=== PATIENT | female | born 1970 | race Caucasian/White ===

== ENCOUNTER 2019-05-21 09:54 | Outpatient (RCR) | payer MEDICAID ==
[~2019-05-21 09:54] MED LIST: ALBU8.5H4 IH; ALPR0.5T7 PO; ARMO250T3 PO; BUDE6HFA INH; HYDR-3729 PO; LVF500T PO; Levofloxacin PO; TRAM-21 PO; [UNRECOGNIZED DRUG - CODE] PO
== END 2019-06-04 11:17 | disposition home or self-care (01) ==
PROVIDERS: ATTEND Nurse Practitioner
DX: M77.01 Medial epicondylitis, right elbow (principal)

== ENCOUNTER 2020-01-12 10:39 | Inpatient (IN) | payer MEDICAID ==
[2020-01-12] VITALS (9 sets, daily range): BP systolic 89–133; BP diastolic 40–111
[~2020-01-12] VITALS: Ht 170.1 cm; Wt 76.2 kg
[2020-01-12] MEDS ORDERED: NS IV 1000 ML 1,000 ML ONE (11:20)
[2020-01-12] MEDS: NS IV 1000 ML 1,000 ML IV SCH ×4 (11:29→19:58)
[2020-01-12] MEDS ORDERED: ONDANSETRON 4 MG/2 ML (SDV) Z0FRAN IVP ONE (11:30)
[2020-01-12 11:33] LABS: BASOPHILS % (AUTO) 0 % (0-10); EOSINOPHILS % (AUTO) 0 % (0-10); HEMATOCRIT 37 % (35-52); HEMOGLOBIN 12.6 g/dL (11.5-16.0); LYMPHOCYTES # (AUTO) 0.2 10^3/uL (1.0-4.0); LYMPHOCYTES % (AUTO) 4 % (12-44); MEAN CORPUSCULAR HEMOGLOBIN 32 pg (25-34); MEAN CORPUSCULAR HGB CONC 34 g/dL (32-36); MEAN CORPUSCULAR VOLUME 94 fL (80-99); MEAN PLATELET VOLUME 12.1 fL (9.0-12.2); MONOCYTES # (AUTO) 0.2 10^3/uL (0.0-1.0); MONOCYTES % (AUTO) 3 % (0-12); NEUTROPHILS # (AUTO) 5.5 10^3/uL (1.8-7.8); NEUTROPHILS % (AUTO) 92 % (42-75); PLATELET COUNT 170 10^3/uL (130-400); WHITE BLOOD COUNT 5.9 10^3/uL (4.3-11.0)
[2020-01-12 11:37] LABS: ALBUMIN 3.9 GM/DL (3.2-4.5); POTASSIUM 3.7 MMOL/L (3.6-5.0)
[2020-01-12 11:38] LABS: CALCIUM 9.5 MG/DL (8.5-10.1); INR 1.2 (0.8-1.4); PROTHROMBIN TIME PATIENT 15.4 SEC (12.2-14.7)
[2020-01-12 11:40] LABS: TOTAL PROTEIN 7.5 GM/DL (6.4-8.2)
[2020-01-12 11:41] LABS: BILIRUBIN,TOTAL 0.7 MG/DL (0.1-1.0)
[2020-01-12 11:43] LABS: CREATININE SERUM 1.96 MG/DL (0.60-1.30)
--- NOTE | 2020-01-12 11:49 | ED GU-Female ---
General Chief Complaint: - Urinary Stated Complaint: UTI;VOMITING Nursing Triage Note: TO ED PER W/C REPORTS WAS SEEN IN [facility] YESTERDAY AND DX WITH UTI UNABLE TO KEEP MEDS DOWN OR MEDS FOR TEMP Nursing Sepsis Screen: Possible Severe Sepsis Risk Source: patient Exam Limitations: no limitations (LISS GARCIA) History of Present Illness Date Seen by Provider: Jan 12, 2020 Time Seen by Provider: 11:24 Initial Comments 49 year old female who presents to the ED with c/o fever, chills, nausea, vomiting and dysuria/UTI. She was seen yesterday at [facility] yesterday by Dr. Page and was started on cipro for UTI. She reports that she took her fist 2 doses and started feeling better but started to have nausea, vomiting and fevers today and unable to keep medication down. She reports that they tested her for covid and it was negative. Reports that symptoms started on 01/08/2020 Associated Symptoms: dysuria, fever/chills, lower back pain, urinary frequency (LISS GARCIA) Allergies and Home Medications Allergies Coded Allergies: doxycycline (Verified Allergy, Intermediate, Rash, 08/09/14) codeine (Unverified Allergy, Unknown, NAUSEA, 12/15/13) Home Medications Alprazolam 0.5 Mg Tablet, 0.5 MG PO BID, (Reported) Armodafinil 250 Mg Tablet, 250 MG PO DAILY, (Reported) Budesonide/Formoterol Fumarate 1 Inhaler Aero, 2 PUFF INH BID PRN for SHORTNESS OF BREATH, (Reported) Levofloxacin 500 Mg Tab, 500 MG PO DAILY @1100 Prescribed by: WARD EVANS on 08/13/14 1005 Noreth A-Et Estra/Fe Fumarate 1 Each Tablet, 1 TAB PO DAILY, (Reported) Tramadol Hcl 50 Mg Tablet, 50 MG PO Q8H Prescribed by: DENA LOZA on 08/13/14 1114 Patient Home Medication List Home Medication List Reviewed: Yes (LISS GARCIA) Review of Systems Review of Systems Constitutional: see HPI, chills, fever Gastrointestinal: see HPI, nausea, vomiting Musculoskeletal: see HPI, back pain (LISS GARCIA) All Other Systemes Reviewed Negative Unless Noted: Yes (LISS GARCIA) Past Njyfdcc-Ofizrm-Elpbjc Hx Past Med/Social Hx: Reviewed Nursing Past Med/Soc Hx (LISS GARCIA) Patient Social History Alcohol Use: Denies Use Recreational Drug Use: No Smoking Status: Never a Smoker Recent Foreign Travel: No Contact w/Someone Who Travel: No Recent Infectious Disease Expo: No (LISS GARCIA) Immunizations Up To Date Tetanus Booster (TDap): More than 5yrs Date of Pneumonia Vaccine: Jan 23, 2013 (LISS GARCIA) Seasonal Allergies Seasonal Allergies: Yes (LISS GARCIA) Past Medical History Surgeries: Yes (C/S X2, WRIST SURGERY, CYST REMOVED OFF HEAD) Section, Orthopedic Respiratory: No Asthma Cardiac: No Neurological: No Reproductive Disorders: No Female Reproductive Disorders: Denies Sexually Transmitted Disease: No HIV/AIDS: No Gastrointestinal: No Musculoskeletal: No Endocrine: No Loss of Vision: Denies Hearing Impairment: Denies Cancer: No Psychosocial: Yes Depression Integumentary: No Blood Disorders: No Adverse Reaction/Blood Tranf: No (LISS GARCIA) Family Medical History Reviewed Nursing Family Hx (LISS GARCIA) Alzheimer's disease 19 FATHER Arthritis 19 MOTHER Asthma 19 MOTHER Cardiovascular disease 19 FATHER 19 MOTHER Completed stroke 19 MOTHER Dementia 19 FATHER Diabetes mellitus 19 MOTHER Hypercholesterolemia 19 FATHER 19 MOTHER Hypertension 19 MOTHER Myocardial infarction 19 FATHER Psychosocial problem 19 FATHER Severe allergy 19 MOTHER Thyroid disease 19 MOTHER No Family History of: AIDS Abdominal aortic aneurysm Posey's disease Alcoholism Aphasia Cancer of mouth Cataracts Colon cancer Congenital disease Congenital heart disease Coronary thrombosis Cystic fibrosis Deafness or hearing loss Drug abuse Dysphasia Fibrocystic disease of breast Gastroenteritis Glaucoma Headache disorder Infertility Kidney disease Neoplasm Not obtainable due to adoption Osteoporosis Parkinson's disease Prostate cancer Respiratory disorder Seizure disorder Tuberculosis Visual disorder Physical Exam Vital Signs Vital Signs - First Documented 01/12/20 10:49 Temp 38.2 Pulse 129 Resp 18 B/P (MAP) 95/57 (70) Pulse Ox 98 O2 Delivery Room Air (AGGIE GRACE MD) Vital Signs Capillary Refill : Less Than 3 Seconds (LISS GARCIA) Height, Weight, BMI Height: 5'8.00" Weight: 122lbs. 6.0oz. 55.674907ev; 29.00 BMI Method: General Appearance: WD/WN, no apparent distress Cardiovascular: normal peripheral pulses, regular rate, rhythm, no edema, no gallop, no JVD, no murmur Respiratory: chest non-tender, lungs clear, normal breath sounds, no respiratory distress, no accessory muscle use, respiratory distress Gastrointestinal: normal bowel sounds, non tender, soft, no organomegaly, no pulsatile mass, abnormal bowel sounds Back: CVA tenderness (R), CVA tenderness (L) Extremities: normal capillary refill Neurologic/Psychiatric: alert, normal mood/affect, oriented x 3 Skin: warm/dry (LISS GARCIA) Focused Exam Lactate Level 01/12/20 11:29: Lactic Acid Level 2.37*H (AGGIE GRACE MD) Lactic Acid Level Laboratory Tests Test 01/12/20 11:29 Lactic Acid Level 2.37 MMOL/L (0.50-2.00) *H (AGGIE GRACE MD) Procedures/Interventions Lumen: triple Central Line Procedure: betadine prep, sterile drapes applied, sterile dressing applied Position: internal jugular (R) Anesthesia: Lidocaine Volume Anesthetic (ccs): 5 Complications: none Post Position: sutured, good blood return, position confirmed w/ CXR Central line placed due to patient condition and findings of persistent hypotension in the setting of urinary tract infection. Patient will require pressors as well as antibiotics and frequent blood draws. Patient consented to procedure after discussions of risk and benefits. Placed times one stick. Ultrasound guidance to the right IJ using standard technique. Good draw and f lush. Post x-ray shows line in good position without pneumothorax. (AGGIE GRACE MD) Progress/Results/Core Measures Suspected Sepsis Recent Fever Within 48 Hours: Yes Infection Criteria Present: Suspected New Infection New/Unexplained Altered Menta: No Sepsis Screen: Possible Severe Sepsis Risk SIRS Temperature: Pulse: 129 Respiratory Rate: 18 Laboratory Tests 01/12/20 11:25: White Blood Count 5.9 Blood Pressure 95 /57 Mean: 70 01/12/20 11:29: Lactic Acid Level 2.37*H 01/12/20 13:54: Laboratory Tests 01/12/20 11:25: Creatinine 1.96H, INR Comment 1.2, Platelet Count 170, Total Bilirubin 0.7 (LISS GARCIA) Results/Orders Lab Results Laboratory Tests Test 01/12/20 11:25 01/12/20 11:29 01/12/20 11:48 Range/Units White Blood Count 5.9 4.3-11.0 10^3/uL Red Blood Count 3.93 3.80-5.11 10^6/uL Hemoglobin 12.6 11.5-16.0 g/dL Hematocrit 37 35-52 % Mean Corpuscular Volume 94 80-99 fL Mean Corpuscular Hemoglobin 32 25-34 pg Mean Corpuscular Hemoglobin Concent 34 32-36 g/dL Red Cell Distribution Width 13.0 10.0-14.5 % Platelet Count 170 130-400 10^3/uL Mean Platelet Volume 12.1 9.0-12.2 fL Immature Granulocyte % (Auto) 1 % Neutrophils (%) (Auto) 92 H 42-75 % Lymphocytes (%) (Auto) 4 L 12-44 % Monocytes (%) (Auto) 3 0-12 % Eosinophils (%) (Auto) 0 0-10 % Basophils (%) (Auto) 0 0-10 % Neutrophils # (Auto) 5.5 1.8-7.8 10^3/uL Lymphocytes # (Auto) 0.2 L 1.0-4.0 10^3/uL Monocytes # (Auto) 0.2 0.0-1.0 10^3/uL Eosinophils # (Auto) 0.0 0.0-0.3 10^3/uL Basophils # (Auto) 0.0 0.0-0.1 10^3/uL Immature Granulocyte # (Auto) 0.0 0.0-0.1 10^3/uL Neutrophils % (Manual) 67 % Lymphocytes % (Manual) 4 % Monocytes % (Manual) 3 % Basophils % (Manual) 1 % Band Neutrophils 25 % Blood Morphology Comment NORMAL Prothrombin Time 15.4 H 12.2-14.7 SEC INR Comment 1.2 0.8-1.4 Activated Partial Thromboplast Time 32 24-35 SEC Sodium Level 131 L 135-145 MMOL/L Potassium Level 3.7 3.6-5.0 MMOL/L Chloride Level 97 L 98-107 MMOL/L Carbon Dioxide Level 23 21-32 MMOL/L Anion Gap 11 5-14 MMOL/L Blood Urea Nitrogen 22 H 7-18 MG/DL Creatinine 1.96 H 0.60-1.30 MG/DL Estimat Glomerular Filtration Rate 27 BUN/Creatinine Ratio 11 Glucose Level 129 H 70-105 MG/DL Calcium Level 9.5 8.5-10.1 MG/DL Corrected Calcium 9.6 8.5-10.1 MG/DL Total Bilirubin 0.7 0.1-1.0 MG/DL Aspartate Amino Transf (AST/SGOT) 19 5-34 U/L Alanine Aminotransferase (ALT/SGPT) 13 0-55 U/L Alkaline Phosphatase 87 40-136 U/L Total Protein 7.5 6.4-8.2 GM/DL Albumin 3.9 3.2-4.5 GM/DL Lactic Acid Level 2.37 *H 0.50-2.00 MMOL/L Urine Color YELLOW Urine Clarity CLOUDY Urine pH 5.5 5-9 Urine Specific [place] 1.020 1.016-1.022 Urine Protein 2+ H NEGATIVE Urine Glucose (UA) NEGATIVE NEGATIVE Urine Ketones NEGATIVE NEGATIVE Urine Nitrite NEGATIVE NEGATIVE Urine Bilirubin NEGATIVE NEGATIVE Urine Urobilinogen 0.2 < = 1.0 MG/DL Urine Leukocyte Esterase 1+ H NEGATIVE Urine RBC (Auto) 3+ H NEGATIVE Urine RBC 10-25 H /HPF Urine WBC >100 H /HPF Urine Squamous Epithelial Cells 25-50 H /HPF Urine Crystals NONE /LPF Urine Bacteria MODERATE H /HPF Urine Casts PRESENT /LPF Urine Coarse Granular Casts 25-50 H /LPF Urine Mucus NEGATIVE /LPF Urine Culture Indicated CULTURE PENDING (AGGIE GRACE MD) My Orders Orders - AGGIE GRACE MD Ns Iv 1000 Ml (Sodium Chloride 0.9%) (01/12/20 11:20) Chest 1 View, Ap/Pa Only (01/12/20 13:14) Norepinephrine 4 Mg/250 Ml (Norepinephri (01/12/20 13:15) (AGGIE GRACE MD) Medications Given in ED Current Medications Medications Dose Ordered Sig/Bob Route Start Time Stop Time Status Last Admin Dose Admin Acetaminophen 1,000 mg ONCE ONCE PO 01/12/20 12:15 01/12/20 12:16 DC 01/12/20 12:22 1,000 MG Ceftriaxone Sodium 1000 mg/ Sterile Water 10 ml @ 200 mls/hr ONCE ONCE IV 01/12/20 12:15 01/12/20 12:17 DC 01/12/20 12:23 200 MLS/HR Ondansetron HCl 8 mg ONCE ONCE IVP 01/12/20 11:30 01/12/20 11:31 DC 01/12/20 11:36 8 MG (AGGIE GRACE MD) Vital Signs/I&O 01/12/20 10:49 Temp 38.2 Pulse 129 Resp 18 B/P (MAP) 95/57 (70) Pulse Ox 98 O2 Delivery Room Air (AGGIE GRACE MD) Vital Signs/I&O Capillary Refill : Less Than 3 Seconds (LISS GARCIA) Blood Pressure Mean: 70 Departure Communication (Admissions) Time/Spoke to Admitting Phy: 12:32 Shelly 1315: The patient's blood pressure continued to decline and central line was placed by Dr. Grace at this time and Dr. Bravo was updated and the patient was started on Levophed. (LISS GARCIA) Impression Primary Impression: Urinary tract infection Additional Impression: Sepsis Disposition: 01 HOME, SELF-CARE Condition: Stable/Unchanged Admissions Decision to Admit Reason: Admit from ER (General) Decision to Admit/Date: Jan 12, 2020 Time/Decision to Admit Time: 14:10 (LISS GARCIA) Departure-Patient Inst. Referrals: MEKHI BOYKIN MD (PCP) Primary Care Physician Patient Instructions: Kidney Infection LISS GARCIA Jan 12, 2020 11:49 AGGIE GRACE MD Jan 12, 2020 13:44
[2020-01-12 11:55] LABS: BILIRUBIN,URINE NEGATIVE (NEGATIVE); CLARITY,URINE CLOUDY; COLOR,URINE YELLOW; GLUCOSE, URINE (UA) NEGATIVE (NEGATIVE); KETONES,URINE NEGATIVE (NEGATIVE); LEUKOCYTE ESTERASE ,URINE 1+ (NEGATIVE); NITRITE,URINE NEGATIVE (NEGATIVE); PH,URINE 5.5 (5-9); PROTEIN,URINE 2+ (NEGATIVE)
[2020-01-12] MEDS ORDERED: NS IV 1000 ML 1,000 ML IV SCH (12:00)
[2020-01-12 12:06] LABS: BACTERIA,URINE MODERATE /HPF; SQUAMOUS EPITHELIAL CELL,UR 25-50 /HPF; WBC,URINE >100 /HPF
--- NOTE | 2020-01-12 12:06 | NUR ---
WARD MAYS CAREGIVER DISCHARGE INSTRUCTIONS. GIVEN TO HER NO QUESTIONS
[2020-01-12 12:12] LABS: BAND NEUTROPHILS 25 %; BASOPHILS % (MANUAL) 1 %; LYMPHOCYTES % (MANUAL) 4 %; MONOCYTES % (MANUAL) 3 %; NEUTROPHILS % (MANUAL) 67 %; RBC MORPH NORMAL
[2020-01-12] MEDS ORDERED: cefTRIAXone FOR IV USE 1,000 MG in WATER (STERILE) FOR INJECTION 10 ML IV ONE (12:15)
[2020-01-12] MEDS ORDERED: ACETAMINOPHEN 500 MG TAB (TYLENOL) PO ONE (12:15)
--- NOTE | 2020-01-12 12:17 | NUR ---
PATIENT WILL KEEP BOYFRIEND UPDATED
--- NOTE | 2020-01-12 13:10 | NUR ---
CONSENT SIGNED FOR CENTRAL LINE
[2020-01-12] MEDS ORDERED: NOREPINEPHRINE 4 MG/250 ML 250 ML IV SCH (13:15)
--- NOTE | 2020-01-12 13:35 | NUR ---
CENTRAL LINE PLACED CALLED FOR PCXR FOR PLACEMENT
--- NOTE | 2020-01-12 13:41 | NUR ---
CENTRAL LINE CLEAR TO USE BY DR GRACE
[2020-01-12] MEDS: NS IV 500 ML 500 ML IV SCH ×2 (13:43→14:26)
--- NOTE | 2020-01-12 13:47 | NUR ---
CALLED TO GIVE REPORT NURSE TO CALL BACK.
--- NOTE | 2020-01-12 13:52 | Diagnostic Imaging Report ---
INDICATION: Central line placement. TIME OF EXAM: 01:48 p.m. COMPARISON: Correlation is made with prior chest from 09/07/2014. FINDINGS: Right IJ line has tip overlying the SVC. Lungs are clear. No infiltrates are detected. There is no effusion or pneumothorax. IMPRESSION: Right IJ line placement. No pneumothorax is detected. Dictated by: Dictated on workstation # [id number]
--- NOTE | 2020-01-12 13:52 | NUR ---
ICE CHIPS GIVEN 2ND LATIC ACID DRAWN.
[2020-01-12] MEDS ORDERED: ONDANSETRON 4 MG/2 ML (SDV) Z0FRAN IVP PRN (15:00)
[2020-01-12] MEDS ORDERED: FLU QUADRIvalent (3YOA+) 60 mcg/0.5 ml 2020-21 (AFLURIA) IM ONE (15:00)
[2020-01-12] MEDS ORDERED: CATHETER FLUSH 10 ML SYR IV PRN (15:00)
[2020-01-12] MEDS: VASOPRESSIN INJECTION 20 UNIT in NS (IVPB) 100 ML IV SCH ×2 (15:08→23:53)
[2020-01-12] MEDS: NOREPINEPHRINE 4 MG/250 ML 250 ML IV SCH ×2 (15:08→23:15)
--- NOTE | 2020-01-12 15:08 | History & Physical-Hospitalist ---
History of Present Illness HPI/Chief Complaint Pt is a 49yoCF who presented to the ER due to nausea and vomiting. She states that on 01/07 her symptoms started with left back pain and fevers and chills. She waited through the weekend and saw her PCP, Dr Page yesterday when she didn't feel better. He tested her for COVID which was negative reportedly. She was diagnosed with a UTI though and started on cipro. She was able to take one dose but then her nausea and vomiting worsened and she was unable keep anything down. She tried to take her antibiotic this morning but it came back up. She called Dr Page who adivsed her to seek evaluation in the ER. She was found to be quite hypotension on arrival and is admitted for septic shock. SHe reports she is feeling better now that her BP is up and he left flank pain has improved. Source: patient Exam Limitations: no limitations Date Seen 01/12/20 Time Seen by a Provider: 15:03 Attending Physician Claudia Bravo MD PCP Abimael Phan MD Referring Physician Date of Admission Jan 12, 2020 at 13:08 Home Medications & Allergies Home Medications Reviewed patient Home Medication Reconciliation performed by pharmacy medication reconciliations crystal growing technician and/or nursing. Patients Allergies have been reviewed. Allergies Allergies Coded Allergies doxycycline (Verified Allergy, Intermediate, Rash, 08/09/14) codeine (Unverified Allergy, Unknown, NAUSEA, 12/15/13) Past Dacydpa-Zziiln-Mplyev Hx Past Med/Social Hx: Reviewed Nursing Past Med/Soc Hx Patient Social History Alcohol Use: Denies Use Recreational Drug Use: No Smoking Status: Never a Smoker Recent Foreign Travel: No Contact w/other who traveled: No Recent Infectious Disease Expo: No Immunizations Up To Date Tetanus Booster (TDap): More than 5yrs Date of Pneumonia Vaccine: Jan 23, 2013 Seasonal Allergies Seasonal Allergies: Yes Past Medical History Surgeries: Section, Orthopedic Reproductive: No Sexually Transmitted Disease: No HIV/AIDS: No Female Reproductive Disorders: Denies Loss of Vision: Denies Hearing Impairment: Denies Psychosocial: Depression History of Blood Disorders: No Adverse Reaction to Blood Jean: No Family History Reviewed Nursing Family Hx Alzheimer's disease 19 FATHER Arthritis 19 MOTHER Asthma 19 MOTHER Cardiovascular disease 19 FATHER 19 MOTHER Completed stroke 19 MOTHER Dementia 19 FATHER Diabetes mellitus 19 MOTHER Hypercholesterolemia 19 FATHER 19 MOTHER Hypertension 19 MOTHER Myocardial infarction 19 FATHER Psychosocial problem 19 FATHER Severe allergy 19 MOTHER Thyroid disease 19 MOTHER No Family History of: AIDS Abdominal aortic aneurysm [place]'s disease Alcoholism Aphasia Cancer of mouth Cataracts Colon cancer Congenital disease Congenital heart disease Coronary thrombosis Cystic fibrosis Deafness or hearing loss Drug abuse Dysphasia Fibrocystic disease of breast Gastroenteritis Glaucoma Headache disorder Infertility Kidney disease Neoplasm Not obtainable due to adoption Osteoporosis Parkinson's disease Prostate cancer Respiratory disorder Seizure disorder Tuberculosis Visual disorder Review of Systems Constitutional: chills, diaphoresis, fever EENTM: no symptoms reported Respiratory: No cough, No short of breath Cardiovascular: No chest pain, No palpitations Gastrointestinal: nausea, vomiting Genitourinary: see HPI; No dysuria; frequency Musculoskeletal: back pain Skin: no symptoms reported Psychiatric/Neurological: No Symptoms Reported Physical Exam Physical Exam Vital Signs Vital Signs - First Documented 01/12/20 10:49 Temp 38.2 Pulse 129 Resp 18 B/P (MAP) 95/57 (70) Pulse Ox 98 O2 Delivery Room Air Capillary Refill : Less Than 3 Seconds Height, Weight, BMI Height: 5'8.00" Weight: 122lbs. 6.0oz. 55.475676vm; 29.00 BMI Method: General Appearance: No Apparent Distress, WD/WN HEENT: PERRL/EOMI, Moist Mucous Membranes Neck: Normal Inspection, Supple, Other (central line in place) Respiratory: Lungs Clear, No Accessory Muscle Use, No Respiratory Distress Cardiovascular: Regular Rate, Rhythm, No Murmur Gastrointestinal: Normal Bowel Sounds, Non Tender, Soft Back: CVA Tenderness (L) Extremity: Normal Capillary Refill, No Calf Tenderness Neurologic/Psychiatric: Alert, Oriented x3, Normal Mood/Affect Skin: Normal Color, Warm/Dry Results Results/Procedures Labs Laboratory Tests 01/12/20 11:25 Patient resulted labs reviewed. Imaging: Reviewed Imaging Report Imaging [facility], [place] NAME: [facility] REC#: [id number] PT STATUS: ADM IN : 1970 PHYSICIAN: AGGIE GRACE MD ADMIT DATE: 01/12/20/ICU Draft Date of Exam:01/12/20 CHEST 1 VIEW, AP/PA ONLY INDICATION: Central line placement. TIME OF EXAM: 01:48 p.m. COMPARISON: Correlation is made with prior chest from 09/07/2014. FINDINGS: Right IJ line has tip overlying the SVC. Lungs are clear. No infiltrates are detected. There is no effusion or pneumothorax. IMPRESSION: Right IJ line placement. No pneumothorax is detected. Dictated on workstation # [id number] Dict: 01/12/20 1347 Trans: 01/12/20 1352 [id number] Interpreted by: RAFFAELE KERR MD Electronically signed by: Assessment/Plan Admission Diagnosis Septic Shock Admission Status: Inpatient Order (span 2 midnights) Reason for Inpatient Admission: see below Assessment and Plan Septic Shock UTI Continue on IV abx Titrate pressors off as able Request cultures from Kenny Repeat cultures here s/p 30cc/kg bolus in the Er I attest to a focused exam COVID negative yesterday per report SD Continue IVF trend Hyponatremia Likely due to hypovolemia Continue IVF DVT ppx: Lovenox Diagnosis/Problems Diagnosis/Problems (1) SD (acute kidney injury) Status: Acute (2) Hyponatremia Status: Acute (3) Sepsis Status: Acute Qualifiers: Sepsis type: sepsis due to unspecified organism Sepsis acute organ dysfunction status: with acute organ dysfunction Severe sepsis acute organ dysfunction type: acute renal failure Acute renal failure type: unspecified Severe sepsis shock status: with septic shock Qualified Codes: A41.9 - Sepsis, unspecified organism; R65.21 - Severe sepsis with septic shock; N17.9 - Acute kidney failure, unspecified (4) Urinary tract infection Status: Acute Qualifiers: Urinary tract infection type: acute pyelonephritis Qualified Codes: N10 - Acute pyelonephritis Clinical Quality Measures DVT/VTE Risk/Contraindication: Risk Factor Score Per Nursin RFS Level Per Nursing on Admit: 4+=Very High Copy Copies To 1: CLAU PAGE KATELYN M MD Jan 12, 2020 15:08
[2020-01-12] MEDS ORDERED: EPINEPHrine 1 MG INJECTION 4 MG in NS (IVPB) 248 ML IV SCH (15:15)
[2020-01-12] MEDS ORDERED: ONDANSETRON 4 MG/2 ML (SDV) Z0FRAN IV PRN (15:15)
[2020-01-12] MEDS ORDERED: VIT1TABL82 PO (15:48)
[2020-01-12] MEDS ORDERED: NAPR-915 PO (15:48)
[2020-01-12] MEDS ORDERED: SULF1TAB35 PO (15:48)
[2020-01-12] MEDS ORDERED: VENL75CA93 PO (15:48)
[2020-01-12] MEDS ORDERED: FLUT9.9S NSEACH (15:48)
[2020-01-12] MEDS ORDERED: CHOL200012 PO (15:48)
[2020-01-12] MEDS ORDERED: BREX2TAB PO (15:48)
[2020-01-12] MEDS ORDERED: NORE1TAB95 PO (15:48)
--- NOTE | 2020-01-12 15:50 | NUR ---
SPOKE WITH THE PT AND WENT THRU THE EXT MED HISTORY TO COMPLETE THE MED REC VENLAFAXINE- PT TAKES A 150MG CAP AND 75MG CAP TO EQUAL 225MG DAILY REXULTI- 1 MG AND 2 MG ARE BOTH LISTED ON THE EXT MED HISTORY, ACCORDING TO THE PT SHE IS CURRENTLY TAKING THE 2MG . SHE HAD FILLED THE 2MG AND THOUGHT SHE WAS HAVING ISSUES DUE TO THE MEDICATION THEREFORE SHE WAS PRESCRIBED THE 1MG. AFTER THE PT RECOVERED FROM SURGERY SHE REALIZED THE ISSUES SHE WAS HAVING WERENT RELATED TO REXULTI AND THE DR HAD HER SWITCH BACK TO THE 2MG OTC MEDS: VIT B3 50MCG VIT B COMPLEX FLONASE
[2020-01-12] MEDS: ENOXAPARIN 40 MG/0.4 ML (LOVENOX) SYR SQ SCH (16:50)
--- NOTE | 2020-01-12 18:24 | NUR ---
THIS NURSE NOTIFIED DR BECKER PT HEART MONITOR IS SHOWING 2-3 SEC PAUSES. PT IS ASYMPTOMATIC. ORDER GIVEN FOR EKG.
--- NOTE | 2020-01-12 18:45 | NUR ---
THIS NURSE NOTIFIED DR BECKER OF EKG RESULTS. NO NEW ORDERS AT THIS TIME. WILL CONTINUE TO MONITOR.
[2020-01-12] MEDS: ACETAMINOPHEN 500 MG TAB (TYLENOL) PO PRN (22:17)
[2020-01-13] VITALS (18 sets, daily range): BP systolic 94–138; BP diastolic 60–84
[2020-01-13] MEDS ORDERED: ALPRAZolam 0.25 MG (XANAX) TAB PO ONE (00:15)
[2020-01-13] MEDS: NS IV 1000 ML 1,000 ML IV SCH (00:36)
[2020-01-13 02:42] LABS: BASOPHILS % (AUTO) 1 % (0-10); EOSINOPHILS # (AUTO) 0.1 10^3/uL (0.0-0.3); EOSINOPHILS % (AUTO) 1 % (0-10); HEMATOCRIT 29 % (35-52); HEMOGLOBIN 9.9 g/dL (11.5-16.0); LYMPHOCYTES % (AUTO) 11 % (12-44); MEAN CORPUSCULAR HEMOGLOBIN 32 pg (25-34); MEAN CORPUSCULAR HGB CONC 35 g/dL (32-36); MEAN CORPUSCULAR VOLUME 94 fL (80-99); MEAN PLATELET VOLUME 12.4 fL (9.0-12.2); MONOCYTES # (AUTO) 0.9 10^3/uL (0.0-1.0); MONOCYTES % (AUTO) 11 % (0-12); NEUTROPHILS # (AUTO) 6.7 10^3/uL (1.8-7.8); NEUTROPHILS % (AUTO) 77 % (42-75); PLATELET COUNT 132 10^3/uL (130-400); WHITE BLOOD COUNT 8.7 10^3/uL (4.3-11.0)
[2020-01-13 02:48] LABS: POTASSIUM 3.3 MMOL/L (3.6-5.0)
[2020-01-13 02:50] LABS: CALCIUM 7.6 MG/DL (8.5-10.1)
[2020-01-13 02:54] LABS: CREATININE SERUM 1.41 MG/DL (0.60-1.30); PHOSPHORUS 2.2 MG/DL (2.3-4.7)
[2020-01-13] MEDS: KCL 20 MEQ TAB (K-DUR) PO SCH (03:36)
[2020-01-13] MEDS: POTASSIUM CL 10MEQ/50ML IVPB 50 ML IV SCH (03:36)
[2020-01-13] MEDS: MAGNESIUM 1 GM/100 ML IVPB 100 ML IV SCH (03:36)
--- NOTE | 2020-01-13 04:39 | Pulmonary Consultation ---
SHANNON HENRY MED STUDENT 01/13/20 0439: History of Present Illness History of Present Illness Date Seen by Provider: Jan 13, 2020 Time Seen by Provider: 04:20 Date of Admission History of Present Illness Radha Kowalski is a 49 year old female seen today due to a UTI, she presented to the ED 01/11 due to nausea and vomiting, and was found to be in septic shock. She reports having left sided abdominal and flank pain, fevers and chills, dysuria, and nausea/vomiting starting on Saturday, and reports that she has not ate or been able to keep medication down in the past four days. She required levophed on admission, nursing reports it has been held since midnight. This morning she reports that her nausea/vomiting have improved significantly, and she was able to eat and take medication PO yesterday. Her abdominal pain has improved as well, she reports it is a 7/10. Her dysuria is improving and urinary frequency have improved. She reports having CP and SOB yesterday that she describes has pressure moving the left of her chest to the right, reports it occurred suddenly while she was lying down and improved with Tylenol. Nursing note reports 2-3 second pauses on monitor, EKG was taken. She has had no recurrence of chest pain. Also reports RUQ tenderness to palpation and movement that began yesterday. Allergies and Home Medications Allergies Coded Allergies: doxycycline (Verified Allergy, Intermediate, Rash, 08/09/14) codeine (Unverified Allergy, Unknown, NAUSEA, 12/15/13) Home Medications Brexpiprazole 2 Mg Tablet, 2 MG PO DAILY, (Reported) Cholecalciferol (Vitamin D3) 50 Mcg Capsule, 50 MCG PO DAILY, (Reported) Fluticasone Propionate 9.9 Ml [place].susp, 1-2 SPRAY NSEACH DAILY PRN for CONGESTION, (Reported) 1 SPRAY EACH NARE DAILY Naproxen 500 Mg Tablet, 500 MG PO BID PRN for PAIN-MILD (1-4), (Reported) Norethindrone-E.estradiol-Iron 1 Each Tablet, 1 EA PO DAILY, (Reported) Sulfamethoxazole/Trimethoprim 1 Each Tablet, 1 EA PO BID, (Reported) FILLED 01-11-2020 #20/10 DAY SUPPLY Venlafaxine HCl 75 Mg Cap.er.24h, 225 MG PO DAILY, (Reported) TAKES 75MG +150MG TO EQUAL 225MG DAILY Vit B Comp/C/FA/Iron/Vit E 1 Each Tablet, 1 EACH PO DAILY, (Reported) Past Yovkvxq-Vjmoyr-Bxeifp Hx Past Med/Social Hx: Reviewed Nursing Past Med/Soc Hx Patient Social History Alcohol Use: Denies Use Recreational Drug Use: No Smoking Status: Never a Smoker Recent Foreign Travel: No Contact w/Someone Who Travel: No Recent Infectious Disease Expo: No Immunizations Up To Date Tetanus Booster (TDap): More than 5yrs Date of Pneumonia Vaccine: Jan 23, 2013 Seasonal Allergies Seasonal Allergies: Yes Past Medical History Surgeries: Yes (C/S X2, WRIST SURGERY, CYST REMOVED OFF HEAD) Section, Orthopedic Respiratory: No Asthma Cardiac: No Neurological: No Reproductive Disorders: No Female Reproductive Disorders: Denies Sexually Transmitted Disease: No HIV/AIDS: No Gastrointestinal: No Musculoskeletal: No Endocrine: No Loss of Vision: Denies Hearing Impairment: Denies Cancer: No Psychosocial: Yes Depression Integumentary: No Blood Disorders: No Adverse Reaction/Blood Tranf: No Family Medical History Reviewed Nursing Family Hx Alzheimer's disease 19 FATHER Arthritis 19 MOTHER Asthma 19 MOTHER Cardiovascular disease 19 FATHER 19 MOTHER Completed stroke 19 MOTHER Dementia 19 FATHER Diabetes mellitus 19 MOTHER Hypercholesterolemia 19 FATHER 19 MOTHER Hypertension 19 MOTHER Myocardial infarction 19 FATHER Psychosocial problem 19 FATHER Severe allergy 19 MOTHER Thyroid disease 19 MOTHER No Family History of: AIDS Abdominal aortic aneurysm [place]'s disease Alcoholism Aphasia Cancer of mouth Cataracts Colon cancer Congenital disease Congenital heart disease Coronary thrombosis Cystic fibrosis Deafness or hearing loss Drug abuse Dysphasia Fibrocystic disease of breast Gastroenteritis Glaucoma Headache disorder Infertility Kidney disease Neoplasm Not obtainable due to adoption Osteoporosis Parkinson's disease Prostate cancer Respiratory disorder Seizure disorder Tuberculosis Visual disorder Review of Systems Constitutional: Weakness; No: Fever (resolved), Chills (resolved) Eyes: No: Pain, Vision change ENT: Throat pain (associated with vomiting); No: Nose congestion Respiratory: Shortness of breath (during CP yesterday); No: Cough Cardiovascular: Chest Pain; No: Palpitations Gastrointestinal: Nausea (improving), Abdominal Pain (improving); No: Vomiting, Diarrhea, Constipation Genitourinary: Dysuria (improving), Frequency (improving) Neurological: No: Weakness, Numbness Sepsis Event Evaluation Height, Weight, BMI Height: 5'8.00" Weight: 122lbs. 6.0oz. 55.828661dd; 29.00 BMI Method: Exam Exam Vital Signs Date Time Temp Pulse Resp B/P (MAP) Pulse Ox O2 Delivery O2 Flow Rate FiO2 01/13/20 03:00 77 94/60 (71) 99 Room Air 01/13/20 02:00 64 109/64 (79) 95 Room Air 01/13/20 01:00 64 01/13/20 01:00 64 106/70 (82) 95 Room Air 01/13/20 00:19 36.4 01/13/20 00:15 65 113/66 (82) 95 Room Air 01/13/20 00:00 67 14 95 Room Air 01/13/20 00:00 96 Room Air 01/12/20 23:00 69 60 120/83 (95) 95 Room Air 01/12/20 22:00 81 114/83 (93) 93 Room Air 01/12/20 21:00 82 104/96 (99) 96 Room Air 01/12/20 20:00 37.0 01/12/20 20:00 96 Room Air 01/12/20 20:00 93 13 133/96 (108) 97 Room Air 01/12/20 19:00 81 21 120/73 (89) 95 Room Air 01/12/20 19:00 81 01/12/20 18:03 93 01/12/20 18:00 89 10 89/40 (56) 97 Room Air 01/12/20 17:00 101 23 102/63 (76) 96 Room Air 01/12/20 16:00 36.6 01/12/20 16:00 Room Air 01/12/20 16:00 100 43 90 Room Air 01/12/20 15:00 85 131/111 (118) 96 Room Air 01/12/20 15:00 85 131/111 (118) 96 Room Air 01/12/20 14:50 Room Air 01/12/20 14:30 98 33 124/89 (101) 95 Room Air 01/12/20 14:00 87 18 117/71 97 Room Air 01/12/20 13:43 107 88/58 01/12/20 10:49 38.2 129 18 95/57 (70) 98 Room Air I & O 01/13/20 07:00 Intake Total 3585 ml Output Total 2900 ml Balance 685 ml Height & Weight Height: 5'8.00" Weight: 122lbs. 6.0oz. 55.229274ul; 29.00 BMI Method: General Appearance: No Apparent Distress, WD/WN HEENT: PERRL/EOMI, Moist Mucous Membranes; No Scleral Icterus (L), No Scleral Icterus (R) Neck: Normal Inspection, Supple, Tender Lateral (L SCM mildly tender to palpation), Other (central line in place) Respiratory: Lungs Clear, Normal Breath Sounds, No Accessory Muscle Use, No Respiratory Distress Cardiovascular: No Edema, No Murmur, Normal Peripheral Pulses, Tachycardia (90s-100s) Capillary Refill: Less Than 3 Seconds Peripheral Pulses: 2+ Dorsalis Pedis (R), 2+ Left Dors-Pedis (L), 2+ Radial Pulses (R), 2+ Radial Pulses (L) Gastrointestinal: soft, no organomegaly, abnormal bowel sounds (hypoactive), tenderness (LLQ, L flank, L CVA improving. Milder RUQ pain new yesterday) Extremity: Normal Capillary Refill, Non Tender, No Calf Tenderness, No Pedal Edema Neurologic/Psychiatric: Alert, Oriented x3, Normal Mood/Affect Skin: Normal Color, Warm/Dry Results Lab Laboratory Tests 01/12/20 11:25 01/13/20 02:30 Assessment/Plan Assessment/Plan Septic shock - continue IVF - off levophed since midnight, BP 120/83 at last check - tachycardic during exam, otherwise HR in 60s-70s this morning - afebrile, no leukocytosis - lactic acid 1.38, down from 2.37 UTI - urine culture pending - continue ceftriaxone - n/v controlled with zofran SD - BUN 20, Cr 1.41, slightly improved today - continue IVF Hypokalemia - replace - magnesium replacement ordered Hypophosphatemia - PO4 2.2, monitor Anemia - Hgb 9.9, monitor Hyponatremia - resolved CORAZON MOELLER DO 01/13/20 0537: History of Present Illness History of Present Illness Time Seen by Provider: 05:32 Allergies and Home Medications Allergies Coded Allergies: doxycycline (Verified Allergy, Intermediate, Rash, 08/09/14) codeine (Unverified Allergy, Unknown, NAUSEA, 12/15/13) Home Medications Brexpiprazole 2 Mg Tablet, 2 MG PO DAILY, (Reported) Cholecalciferol (Vitamin D3) 50 Mcg Capsule, 50 MCG PO DAILY, (Reported) Fluticasone Propionate 9.9 Ml [place].susp, 1-2 SPRAY NSEACH DAILY PRN for CONGESTION, (Reported) 1 SPRAY EACH NARE DAILY Naproxen 500 Mg Tablet, 500 MG PO BID PRN for PAIN-MILD (1-4), (Reported) Norethindrone-E.estradiol-Iron 1 Each Tablet, 1 EA PO DAILY, (Reported) Sulfamethoxazole/Trimethoprim 1 Each Tablet, 1 EA PO BID, (Reported) FILLED 01-11-2020 #20/10 DAY SUPPLY Venlafaxine HCl 75 Mg Cap.er.24h, 225 MG PO DAILY, (Reported) TAKES 75MG +150MG TO EQUAL 225MG DAILY Vit B Comp/C/FA/Iron/Vit E 1 Each Tablet, 1 EACH PO DAILY, (Reported) Past Avcemjj-Ewmynh-Kfxulk Hx Family Medical History Alzheimer's disease 19 FATHER Arthritis 19 MOTHER Asthma 19 MOTHER Cardiovascular disease 19 FATHER 19 MOTHER Completed stroke 19 MOTHER Dementia 19 FATHER Diabetes mellitus 19 MOTHER Hypercholesterolemia 19 FATHER 19 MOTHER Hypertension 19 MOTHER Myocardial infarction 19 FATHER Psychosocial problem 19 FATHER Severe allergy 19 MOTHER Thyroid disease 19 MOTHER No Family History of: AIDS Abdominal aortic aneurysm [place]'s disease Alcoholism Aphasia Cancer of mouth Cataracts Colon cancer Congenital disease Congenital heart disease Coronary thrombosis Cystic fibrosis Deafness or hearing loss Drug abuse Dysphasia Fibrocystic disease of breast Gastroenteritis Glaucoma Headache disorder Infertility Kidney disease Neoplasm Not obtainable due to adoption Osteoporosis Parkinson's disease Prostate cancer Respiratory disorder Seizure disorder Tuberculosis Visual disorder Review of Systems Time Seen by Provider: 05:33 Exam Exam General Appearance: No Apparent Distress, WD/WN HEENT: PERRL/EOMI, Moist Mucous Membranes Neck: Normal Inspection, Supple Respiratory: Lungs Clear, Normal Breath Sounds, No Accessory Muscle Use, No Respiratory Distress Cardiovascular: No Edema, No Murmur, Normal Peripheral Pulses Gastrointestinal: soft, no organomegaly Extremity: Normal Capillary Refill, Non Tender, No Calf Tenderness Neurologic/Psychiatric: Alert, Oriented x3, Normal Mood/Affect Skin: Normal Color, Warm/Dry Assessment/Plan Assessment/Plan Septic shock - continue IVF - off levophed since midnight, BP 120/83 at last check - tachycardic during exam, otherwise HR in 60s-70s this morning - afebrile, no leukocytosis - lactic acid 1.38, down from 2.37 UTI - urine culture pending - continue ceftriaxone - n/v controlled with zofran SD - BUN 20, Cr 1.41, slightly improved today - continue IVF Hypokalemia - replace - magnesium replacement ordered Hypophosphatemia - PO4 2.2, monitor Anemia - Hgb 9.9, monitor Hyponatremia - resolved SHANNON HENRY MED STUDENT Jan 13, 2020 04:39 CORAZON MOELLER DO Jan 13, 2020 05:37
[2020-01-13] MEDS: LACTATED RINGERS 1,000 ML IV SCH ×2 (05:54→14:45)
[2020-01-13] MEDS: ACETAMINOPHEN 500 MG TAB (TYLENOL) PO PRN ×2 (05:55→19:52)
[2020-01-13] MEDS ORDERED: IBUPROFEN TABLET 200 MG TAB PO ONE (06:35)
[2020-01-13] MEDS: IBUPROFEN TABLET 200 MG TAB PO PRN ×2 (06:42→14:28)
[2020-01-13] MEDS: NOREPINEPHRINE 4 MG/250 ML 250 ML IV SCH ×2 (06:51→12:35)
[2020-01-13] MEDS ORDERED: SODIUM PHOSPHATE INJ 30 MM in NS (IVPB) 250 ML IV ONE (07:00)
[2020-01-13] MEDS: VASOPRESSIN INJECTION 20 UNIT in NS (IVPB) 100 ML IV SCH (07:28)
--- NOTE | 2020-01-13 07:46 | Diagnostic Imaging Report ---
INDICATION: Dyspnea Upright chest shows normal heart size and vascularity. There is right basilar discoid atelectasis. There is no effusion or pneumothorax. IMPRESSION: Basilar discoid atelectasis with slightly more opacification of the right lung base otherwise there is no change from 01/12/2020. Dictated by: Dictated on workstation # [id number]
--- NOTE | 2020-01-13 08:53 | Progress Note - Hospitalist ---
Subjective HPI/CC On Admission Date Seen by Provider: Jan 13, 2020 Time Seen by Provider: 08:48 Pt is a 49yoCF who presented to the ER due to nausea and vomiting. She states that on 01/07 her symptoms started with left back pain and fevers and chills. She waited through the weekend and saw her PCP, Dr Page yesterday when she didn't feel better. He tested her for COVID which was negative reportedly. She was diagnosed with a UTI though and started on cipro. She was able to take one dose but then her nausea and vomiting worsened and she was unable keep anything down. She tried to take her antibiotic this morning but it came back up. She called Dr Page who adivsed her to seek evaluation in the ER. She was found to be quite hypotension on arrival and is admitted for septic shock. SHe reports she is feeling better now that her BP is up and he left flank pain has improved. Subjective/Events-last exam Pt reports feeling better today. Able to keep food down. Discussed positive blood cultures. Focused Exam Lactate Level 01/12/20 11:29: Lactic Acid Level 2.37*H 01/12/20 13:54: Lactic Acid Level 1.22 01/12/20 15:04: Lactic Acid Level 1.38 Objective Exam Vital Signs Vital Signs Date Time Temp Pulse Resp B/P (MAP) Pulse Ox O2 Delivery O2 Flow Rate FiO2 01/13/20 06:31 92 101/69 (80) 95 Room Air 01/13/20 04:00 36.2 01/13/20 00:00 14 Capillary Refill : Less Than 3 Seconds General Appearance: No Apparent Distress, WD/WN Respiratory: Lungs Clear, No Respiratory Distress Cardiovascular: Regular Rate, Rhythm, No Murmur Gastrointestinal: Normal Bowel Sounds, Non Tender, Soft Neurologic/Psychiatric: Alert, Oriented x3 Results/Procedures Lab Laboratory Tests 01/12/20 11:25 01/13/20 02:30 Patient resulted labs reviewed. Imaging: Reviewed Imaging Report Assessment/Plan Assessment and Plan Assess & Plan/Chief Complaint Septic Shock UTI Continue on IV abx now off pressors Discussed with Dr Page who states culture was pansensitive e coli, continue rocephin COVID negative yesterday per report SD Improving, continue fluuids, ,slow rate Hyponatremia Likely due to hypovolemia Continue IVF DVT ppx: Lovenox Diagnosis/Problems Diagnosis/Problems (1) SD (acute kidney injury) Status: Acute (2) Hyponatremia Status: Acute (3) Sepsis Status: Acute Qualifiers: Sepsis type: sepsis due to unspecified organism Sepsis acute organ dysfunction status: with acute organ dysfunction Severe sepsis acute organ dysfunction type: acute renal failure Acute renal failure type: unspecified Severe sepsis shock status: with septic shock Qualified Codes: A41.9 - Sepsis, unspecified organism; R65.21 - Severe sepsis with septic shock; N17.9 - Acute kidney failure, unspecified (4) Urinary tract infection Status: Acute Qualifiers: Urinary tract infection type: acute pyelonephritis Qualified Codes: N10 - Acute pyelonephritis Clinical Quality Measures DVT/VTE Risk/Contraindication: Risk Factor Score Per Nursin RFS Level Per Nursing on Admit: 4+=Very High CHANTELL BECKER MD Jan 13, 2020 08:53
[2020-01-13] MEDS ORDERED: KCL 20 MEQ TAB (K-DUR) PO ONE (09:00)
--- NOTE | 2020-01-13 11:19 | NUR ---
Pt is [employer]. Mortgage Originator provided prayer and Communion.
[2020-01-13] MEDS ORDERED: cefTRIAXone FOR IV USE 1,000 MG in WATER (STERILE) FOR INJECTION 10 ML IV SCH (12:00)
--- NOTE | 2020-01-13 12:05 | NUR ---
THIS NURSE CALLED REPORT TO ROMERO DUNBAR. PT WILL TRANSFER BY WHEELCHAIR WHEN ROOM IS CLEAN.
--- NOTE | 2020-01-13 13:45 | NUR ---
THIS RN TAKING OVER CARE OF PT AT THIS TIME. RECEIVED REPORT FROM HERBIE Licona RN IN ICU.
--- NOTE | 2020-01-13 14:18 | NUR ---
RD ASSESSMENT PMHx: no significant PMH PT INTERACTION: Pt was awake and pleasant during nutrition assessment. Pt states current appetite is "getting better," as it had been poor for the last 4d. Note avg PO intake 63% 2meal, per chart review. Pt states following a regular diet at home, and has no issues with chewing/swallowing food. Pt states recent issues with nausea and vomiting. Pt states no recent issues with constipation or diarrhea, and that her last BM was 01/12. Note pt not currently on bowel regimen per chart review. Pt states no recent wt changes. Note unable to determine recent wt hx, per chart review. ABNORMAL NUTRITION-RELATED LAB VALUES LOW: K 3.3; Ca 7.6; phos 2.2 HIGH: BUN 20; cr 1.41 Est. kcal needs: 1700 kcal | 20 kcal/kg Est. Pro needs: 68 g Pro | 0.8 g Pro/kg PES STATEMENT: Inadequate oral intake (NI-2.1) related to loss of appetite | nausea | vomiting as evidenced by pt interview | avg PO intake 63% x2meal INTERVENTION: Continue with current diet order of Regular diet. Pt may benefit from nutrition supplementation if PO intake declines. Will continue to follow and reassess as pt needs, intake, and status change. Loren Burk, MS, RD, LD
[2020-01-13] MEDS: ENOXAPARIN 40 MG/0.4 ML (LOVENOX) SYR SQ SCH (14:40)
--- NOTE | 2020-01-13 16:00 | NUR ---
PT REPORTED TO RN THAT SHE WAS CONCERNED SHE HAD NOT TAKEN HER EFFEXOR OR REXULTI TODAY. THIS RN WENT OVER MED REC WITH PT TO MAKE SURE IT WAS CORRECT AND IT WAS. DR BECKER NOTIFIED AND ASKED TO RN TO RESTART. RN RESTARTED JUST THE EFFEXOR AND REXULTI WHICH WOULD HAVE TO BE REPLACED BY PHARMACY WITH A FORMULARY. PT NOTIFIED OF THIS.
[2020-01-13] MEDS ORDERED: VENlafaxine XR 75 MG (EFFEXOR XR) CAP PO NR (16:15)
--- NOTE | 2020-01-13 16:25 | NUR ---
THIS RN TALKED TO REMBERTO IN PHARMACY AND ASKED IF PT COULD TAKE DOSE OF EFFEXOR RIGHT NOW SINCE SHE MISSED A DOSE TODAY. REMBERTO SAID TO ORDER EFFEXOR FOR ONE TIME DOSE AND TO LET PT KNOW THERE IS NO SUBSITUTION FOR REXULTI MEDICATION AND THAT SHE WOULD NEED TO BRING IT FROM HOME. PT NOTIFIED OF THIS, BUT SAID SHE WAS NOT CONCERNED ABOUT REXULTI MISSING DOSES THE EFFEXOR. EFFEXOR WAS ADMIN AT 1615 BY THIS RN AND FROM HERE ON OUT IT IS SCHEDULED AT 0900.
[2020-01-14] MEDS: NOREPINEPHRINE 4 MG/250 ML 250 ML IV SCH (00:40)
[2020-01-14] MEDS: IBUPROFEN TABLET 200 MG TAB PO PRN ×2 (02:52→13:44)
[2020-01-14 03:47] VITALS: BP 135/83
[2020-01-14] MEDS: LACTATED RINGERS 1,000 ML IV SCH (03:52)
[2020-01-14 05:33] LABS: NEUTROPHILS % (AUTO) 76 % (42-75)
[2020-01-14 05:35] LABS: BASOPHILS % (AUTO) 0 % (0-10); EOSINOPHILS # (AUTO) 0.2 10^3/uL (0.0-0.3); EOSINOPHILS % (AUTO) 3 % (0-10); HEMATOCRIT 27 % (35-52); HEMOGLOBIN 9.1 g/dL (11.5-16.0); LYMPHOCYTES # (AUTO) 0.6 10^3/uL (1.0-4.0); LYMPHOCYTES % (AUTO) 9 % (12-44); MEAN CORPUSCULAR HEMOGLOBIN 31 pg (25-34); MEAN CORPUSCULAR HGB CONC 34 g/dL (32-36); MEAN CORPUSCULAR VOLUME 93 fL (80-99); MEAN PLATELET VOLUME 13.1 fL (9.0-12.2); MONOCYTES # (AUTO) 0.8 10^3/uL (0.0-1.0); MONOCYTES % (AUTO) 12 % (0-12); NEUTROPHILS # (AUTO) 5.1 10^3/uL (1.8-7.8); PLATELET COUNT 141 10^3/uL (130-400); WHITE BLOOD COUNT 6.8 10^3/uL (4.3-11.0)
[2020-01-14 05:40] LABS: POTASSIUM 3.4 MMOL/L (3.6-5.0)
[2020-01-14 05:41] LABS: CALCIUM 7.9 MG/DL (8.5-10.1)
[2020-01-14 05:45] LABS: CREATININE SERUM 1.16 MG/DL (0.60-1.30); PHOSPHORUS 2.7 MG/DL (2.3-4.7)
[2020-01-14 05:48] LABS: MAGNESIUM 1.7 MG/DL (1.6-2.4)
[2020-01-14] MEDS: MAGNESIUM 1 GM/100 ML IVPB 100 ML IV SCH (05:48)
[2020-01-14] MEDS: POTASSIUM CL 10MEQ/50ML IVPB 50 ML IV SCH (05:48)
[2020-01-14] MEDS: KCL 20 MEQ TAB (K-DUR) PO SCH (06:54)
--- NOTE | 2020-01-14 07:22 | Pulmonary Progress Note ---
Subjective Time Seen by a Provider: 07:19 Subjective/Events-last exam No complications noted. Sepsis Event Evaluation Height, Weight, BMI Height: 5'8.00" Weight: 122lbs. 6.0oz. 55.387026ad; 29.00 BMI Method: Focused Exam Lactate Level 01/12/20 11:29: Lactic Acid Level 2.37*H 01/12/20 13:54: Lactic Acid Level 1.22 01/12/20 15:04: Lactic Acid Level 1.38 Exam Exam Vital Signs Date Time Temp Pulse Resp B/P (MAP) Pulse Ox O2 Delivery O2 Flow Rate FiO2 01/14/20 04:42 37.2 01/14/20 03:47 38.0 94 22 135/83 (100) 96 Room Air 01/14/20 02:52 38.0 01/13/20 23:40 37.3 76 20 115/79 (91) 97 Room Air 01/13/20 20:36 37.7 01/13/20 19:52 38.2 01/13/20 19:50 Room Air 01/13/20 19:50 38.2 86 22 116/74 (88) 99 Room Air 01/13/20 15:34 37.6 85 18 133/84 (100) 99 Room Air 01/13/20 14:00 36.6 84 16 138/66 (90) 100 Room Air 01/13/20 13:20 36.3 84 20 138/66 (90) 100 Room Air 01/13/20 12:36 Room Air 01/13/20 11:00 80 15 104/80 (88) 95 Room Air 01/13/20 10:00 71 40 108/70 (83) 96 Room Air 01/13/20 09:00 87 101/81 (88) 97 Room Air 01/13/20 09:00 36.2 01/13/20 08:00 Room Air 01/13/20 08:00 84 12 106/74 (85) 97 Room Air I & O 01/14/20 07:00 Intake Total 3010 ml Output Total 2350 ml Balance 660 ml Height & Weight Height: 5'8.00" Weight: 122lbs. 6.0oz. 55.401337cn; 29.00 BMI Method: General Appearance: No Apparent Distress, WD/WN HEENT: PERRL/EOMI, Moist Mucous Membranes Neck: Normal Inspection, Supple Respiratory: Lungs Clear, No Respiratory Distress Cardiovascular: Regular Rate, Rhythm, No Murmur Capillary Refill: Less Than 3 Seconds Peripheral Pulses: 2+ Dorsalis Pedis (R), 2+ Left Dors-Pedis (L), 2+ Radial Pulses (R), 2+ Radial Pulses (L) Gastrointestinal: soft, no organomegaly Extremity: Normal Capillary Refill, Non Tender, No Calf Tenderness Neurologic/Psychiatric: Alert, Oriented x3 Skin: Normal Color, Warm/Dry Results Lab Laboratory Tests 01/12/20 11:25 01/13/20 02:30 01/14/20 04:45 Assessment/Plan Assessment/Plan UTI with sepsis - IVF - ceftriaxone SD - Monitor Anemia Pt is doing better. I am going to sign off please call with any questions or concerns. CORAZON MOELLER DO Jan 14, 2020 07:22
[2020-01-14 07:35] VITALS: BP 122/77
[2020-01-14] MEDS ORDERED: KCL 20 MEQ TAB (K-DUR) PO ONE (08:00)
[2020-01-14] MEDS: VENlafaxine XR 75 MG (EFFEXOR XR) CAP PO SCH (08:01)
[2020-01-14] MEDS ORDERED: NON-FORMULARY MEDICATION 1 EA EA (Brexpiprazole (Rexulti) 2 MG) PO SCH (09:00)
--- NOTE | 2020-01-14 09:39 | Progress Note - Hospitalist ---
Subjective HPI/CC On Admission Date Seen by Provider: Jan 14, 2020 Time Seen by Provider: 09:34 Pt is a 49yoCF who presented to the ER due to nausea and vomiting. She states that on 01/07 her symptoms started with left back pain and fevers and chills. She waited through the weekend and saw her PCP, Dr Page yesterday when she didn't feel better. He tested her for COVID which was negative reportedly. She was diagnosed with a UTI though and started on cipro. She was able to take one dose but then her nausea and vomiting worsened and she was unable keep anything down. She tried to take her antibiotic this morning but it came back up. She called Dr Page who adivsed her to seek evaluation in the ER. She was found to be quite hypotension on arrival and is admitted for septic shock. SHe reports she is feeling better now that her BP is up and he left flank pain has improved. Subjective/Events-last exam Pt reports doing well. Nausea improving. Focused Exam Lactate Level 01/12/20 11:29: Lactic Acid Level 2.37*H 01/12/20 13:54: Lactic Acid Level 1.22 01/12/20 15:04: Lactic Acid Level 1.38 Objective Exam Vital Signs Vital Signs Date Time Temp Pulse Resp B/P (MAP) Pulse Ox O2 Delivery O2 Flow Rate FiO2 01/14/20 08:21 Room Air 01/14/20 07:35 36.1 88 20 122/77 (92) 97 Capillary Refill : Less Than 3 SecondsLess Than 3 Seconds General Appearance: No Apparent Distress, WD/WN Neck: Other (central line) Respiratory: Lungs Clear, No Respiratory Distress Cardiovascular: Regular Rate, Rhythm, No Murmur Neurologic/Psychiatric: Alert, Oriented x3 Results/Procedures Lab Laboratory Tests 01/14/20 04:45 Patient resulted labs reviewed. Imaging: Reviewed Imaging Report Assessment/Plan Assessment and Plan Assess & Plan/Chief Complaint Septic Shock UTI Continue on IV abx now off pressors Discussed with Dr Page who states culture was pansensitive e coli, continue rocephin Blood cultures show GNR- await ID and sensitivities COVID negative yesterday per report SD- resolved Hyponatremia- resolved DVT ppx: Lovenox Diagnosis/Problems Diagnosis/Problems (1) SD (acute kidney injury) Status: Acute (2) Hyponatremia Status: Acute (3) Sepsis Status: Acute Qualifiers: Sepsis type: sepsis due to unspecified organism Sepsis acute organ dysfunction status: with acute organ dysfunction Severe sepsis acute organ dysfunction type: acute renal failure Acute renal failure type: unspecified Severe sepsis shock status: with septic shock Qualified Codes: A41.9 - Sepsis, unspecified organism; R65.21 - Severe sepsis with septic shock; N17.9 - Acute kidney failure, unspecified (4) Urinary tract infection Status: Acute Qualifiers: Urinary tract infection type: acute pyelonephritis Qualified Codes: N10 - Acute pyelonephritis Clinical Quality Measures DVT/VTE Risk/Contraindication: Risk Factor Score Per Nursin RFS Level Per Nursing on Admit: 4+=Very High CHANTELL BECKER MD Jan 14, 2020 09:39
[2020-01-14] MEDS ORDERED: PATIENT MAY USE OWN MED,SINGLE MED PO SCH (10:00)
[2020-01-14 11:15] VITALS: BP 121/77
[2020-01-14] MEDS ORDERED: cefTRIAXone FOR IV USE 1,000 MG in WATER (STERILE) FOR INJECTION 10 ML IV SCH (13:00)
[2020-01-14 16:52] VITALS: BP 110/70
[2020-01-14] MEDS: ENOXAPARIN 40 MG/0.4 ML (LOVENOX) SYR SQ SCH (17:08)
[2020-01-14] MEDS: ACETAMINOPHEN 500 MG TAB (TYLENOL) PO PRN (20:22)
[2020-01-14 20:23] VITALS: BP 107/69
[2020-01-14] MEDS ORDERED: CEPH-507 PO (20:48)
--- NOTE | 2020-01-14 20:48 | Discharge Inst-Simple/Standard ---
Discharge Inst-Standard Patient Instructions/Follow Up Plan of Care/Instructions/FU: Please continue to take your medications as written. Please follow up with your primary care doctor to follow up this hospital stay. Activity as Tolerated: Yes Discharge Diet: No Restrictions Return to The Hospital For: Fever, chest pain, shortness of breath, abdominal pain, nausea and vomiting, if you feel you are getting worse. Planned Outpatient Orders/Ref. Pneu Vac Indicated: Yes CHANTELL BECKER MD Jan 14, 2020 20:48
--- NOTE | 2020-01-14 22:30 | NUR ---
PT REPORTS 10/10 PAIN IN ROTATOR CUFF R/T PREVIOUS INJURY. PT REPORTS SHE TAKES OXYCODONE AT HOME, DR GARCIA CALLED, RECEIVED NEW ORDERS FOR A HEATING PAD AND PERCOCET , SEE ORDER HISTORY.
[2020-01-14] MEDS ORDERED: oxyCODONE/APAP 5/325MG (PERCOCET 5) TABLET PO PRN (22:45)
[2020-01-14] MEDS ORDERED: oxyCODONE/APAP 5/325MG (PERCOCET 5) TABLET ONE (23:05)
[2020-01-15] VITALS: BP 113/75
[2020-01-15 03:33] VITALS: BP 119/77
[2020-01-15 06:06] LABS: BASOPHILS % (AUTO) 1 % (0-10); EOSINOPHILS # (AUTO) 0.4 10^3/uL (0.0-0.3); EOSINOPHILS % (AUTO) 5 % (0-10); HEMATOCRIT 30 % (35-52); HEMOGLOBIN 10.1 g/dL (11.5-16.0); LYMPHOCYTES # (AUTO) 0.9 10^3/uL (1.0-4.0); LYMPHOCYTES % (AUTO) 12 % (12-44); MEAN CORPUSCULAR HEMOGLOBIN 32 pg (25-34); MEAN CORPUSCULAR HGB CONC 34 g/dL (32-36); MEAN CORPUSCULAR VOLUME 93 fL (80-99); MEAN PLATELET VOLUME 12.5 fL (9.0-12.2); MONOCYTES # (AUTO) 0.8 10^3/uL (0.0-1.0); MONOCYTES % (AUTO) 11 % (0-12); NEUTROPHILS # (AUTO) 5.1 10^3/uL (1.8-7.8); NEUTROPHILS % (AUTO) 71 % (42-75); PLATELET COUNT 182 10^3/uL (130-400); WHITE BLOOD COUNT 7.2 10^3/uL (4.3-11.0)
[2020-01-15 06:25] LABS: POTASSIUM 3.6 MMOL/L (3.6-5.0)
[2020-01-15 06:26] LABS: CALCIUM 8.2 MG/DL (8.5-10.1)
[2020-01-15 06:31] LABS: CREATININE SERUM 1.09 MG/DL (0.60-1.30); PHOSPHORUS 3.1 MG/DL (2.3-4.7)
[2020-01-15] MEDS: POTASSIUM CL 10MEQ/50ML IVPB 50 ML IV SCH (06:32)
[2020-01-15] MEDS: KCL 20 MEQ TAB (K-DUR) PO SCH (06:32)
[2020-01-15 06:34] LABS: MAGNESIUM 1.7 MG/DL (1.6-2.4)
[2020-01-15] MEDS: MAGNESIUM 1 GM/100 ML IVPB 100 ML IV SCH (06:44)
[2020-01-15 08:00] VITALS: BP 112/74
[2020-01-15] MEDS: ACETAMINOPHEN 500 MG TAB (TYLENOL) PO PRN (08:19)
[2020-01-15] MEDS: VENlafaxine XR 75 MG (EFFEXOR XR) CAP PO SCH (08:19)
--- NOTE | 2020-01-15 10:56 | Discharge Summary ---
Diagnosis/Chief Complaint Date of Admission Jan 12, 2020 at 13:08 Date of Discharge Discharge Date: Jan 14, 2020 Admission Diagnosis Septic Shock Primary Care Discharge Diagnosis (1) SD (acute kidney injury) Status: Acute (2) Hyponatremia Status: Acute (3) Sepsis Status: Acute (4) Urinary tract infection Status: Acute Discharge Summary Discharge Physical Exam Allergies: Coded Allergies: doxycycline (Verified Allergy, Intermediate, Rash, 08/09/14) codeine (Unverified Allergy, Unknown, NAUSEA, 12/15/13) Vitals & I&Os Vital Signs Date Time Temp Pulse Resp B/P (MAP) Pulse Ox O2 Delivery O2 Flow Rate FiO2 01/15/20 13:15 37.1 88 18 112/74 95 Room Air General Appearance: No Apparent Distress, WD/WN Cardiovascular: Regular Rate, Rhythm, No Murmur Gastrointestinal: Normal Bowel Sounds, Non Tender Hospital Course Pt was admitted due to septic shock from pyelonpehritis. She was admitted to the ICU for pressors and IV abx. She responded well and was quickly titrated off of pressors. She was found to be bacteremic with e coli. She had an uneventful hospital stay. She was transitioned ot keflex per sensitivities to follow up with her primary care doctor, Dr. Page to follow this hospital stay. Labs (last 24 hrs) Microbiology 01/12/20 MRSA Screen - Final, Complete MRSA not isolated 01/12/20 Blood Culture - Final, Complete Escherichia coli See Comments 01/12/20 Urine Culture - Final, Complete Gram Negative Flako Patient resulted labs reviewed. Pending Labs Imaging: Reviewed Imaging Report Discussion & Recommendations Discharge Planning: >30 minutes discharge planning Discharge Home Medications: Active Scripts Active Keflex (Cephalexin) 500 Mg Capsule 500 Mg PO BID Reported Flonase Allergy Relief (Fluticasone Propionate) 9.9 Ml Conway.susp 1-2 Conway NSEACH DAILY PRN 1 SPRAY EACH NARE DAILY Vitamin B Complex Tablet (Vit B Comp/C/FA/Iron/Vit E) 1 Each Tablet 1 Each PO DAILY D3-2000 (Cholecalciferol (Vitamin D3)) 50 Mcg Capsule 50 Mcg PO DAILY Rexulti (Brexpiprazole) 2 Mg Tablet 2 Mg PO DAILY Lo Loestrin Fe 1-10 Tablet (Norethindrone-E.estradiol-Iron) 1 Each Tablet 1 Ea PO DAILY Venlafaxine HCl ER (Venlafaxine HCl) 75 Mg Cap.er.24h 225 Mg PO DAILY TAKES 75MG +150MG TO EQUAL 225MG DAILY Naproxen 500 Mg Tablet 500 Mg PO BID PRN Instructions to patient/family Please see electronic discharge instructions given to patient. Clinical Quality Measures DVT/VTE Risk/Contraindication: Risk Factor Score Per Nursin RFS Level Per Nursing on Admit: 4+=Very High Problem Qualifiers (1) Sepsis: Sepsis type: sepsis due to unspecified organism Sepsis acute organ dysfunction status: with acute organ dysfunction Severe sepsis acute organ dysfunction type: acute renal failure Acute renal failure type: unspecified Severe sepsis shock status: with septic shock Qualified Codes: A41.9 - Sepsis, unspecified organism; R65.21 - Severe sepsis with septic shock; N17.9 - Acute kidney failure, unspecified (2) Urinary tract infection: Urinary tract infection type: acute pyelonephritis Qualified Codes: N10 - Acute pyelonephritis CHANTELL BECKER MD Jan 15, 2020 10:56
[2020-01-15 13:15] VITALS: BP 112/74
== END 2020-01-15 13:15 | disposition home or self-care (01) | DRG 871 ==
LOC: EDUNIT# 10:39 → ER 10:42 → ICU 13:08 → 4TH 01-13 14:14
PROVIDERS: ADMIT Family Medicine; ATTEND Family Medicine
DX: A41.51 Sepsis due to Escherichia coli [E. coli] (principal); R65.21 Severe sepsis with septic shock; N39.0 Urinary tract infection, site not specified; E87.1 Hypo-osmolality and hyponatremia; N17.9 Acute kidney failure, unspecified; Z20.828 Contact with and (suspected) exposure to other viral communicable diseases; E87.6 Hypokalemia; E83.39 Other disorders of phosphorus metabolism; D64.9 Anemia, unspecified
CPT/HCPCS: 36415; 71045; 80048; 80053; 81000; 83605; 83735; 84100; 85007; 85025; 85027; 85610; 85730; 87040; 87077; 87081; 87088; 87186; 90686; 93005

== ENCOUNTER 2020-06-02 13:31 | Outpatient (RCR) | payer MEDICAID ==
[~2020-06-02 13:31] MED LIST changes: +BREX2TAB PO; +CEPH-507 PO; +CHOL200012 PO; +FLUT9.9S NSEACH; +NAPR-915 PO; +NORE1TAB95 PO; +SULF1TAB35 PO; +VENL75CA93 PO; +VIT1TABL82 PO
[2020-06-02 13:57] LABS: BASOPHILS # (AUTO) 0.1 10^3/uL (0.0-0.1); BASOPHILS % (AUTO) 1 % (0-10); EOSINOPHILS # (AUTO) 0.7 10^3/uL (0.0-0.3); EOSINOPHILS % (AUTO) 10 % (0-10); HEMATOCRIT 38 % (35-52); HEMOGLOBIN 12.7 g/dL (11.5-16.0); LYMPHOCYTES # (AUTO) 2.1 10^3/uL (1.0-4.0); LYMPHOCYTES % (AUTO) 33 % (12-44); MEAN CORPUSCULAR HEMOGLOBIN 31 pg (25-34); MEAN CORPUSCULAR HGB CONC 33 g/dL (32-36); MEAN CORPUSCULAR VOLUME 95 fL (80-99); MEAN PLATELET VOLUME 12.2 fL (9.0-12.2); MONOCYTES # (AUTO) 0.5 10^3/uL (0.0-1.0); MONOCYTES % (AUTO) 8 % (0-12); NEUTROPHILS % (AUTO) 47 % (42-75); PLATELET COUNT 189 10^3/uL (130-400); WHITE BLOOD COUNT 6.4 10^3/uL (4.3-11.0)
[2020-06-02 14:15] LABS: LYMPHOCYTES % (MANUAL) 32 %; MONOCYTES % (MANUAL) 8 %; NEUTROPHILS % (MANUAL) 44 %
[2020-06-02 14:16] LABS: ALBUMIN 4.1 GM/DL (3.2-4.5); BASOPHILS % (MANUAL) 3 %; BILIRUBIN,TOTAL 0.3 MG/DL (0.1-1.0); CALCIUM 9.1 MG/DL (8.5-10.1); CREATININE SERUM 1.08 MG/DL (0.60-1.30); EOSINOPHILS % (MANUAL) 13 %; POTASSIUM 3.8 MMOL/L (3.6-5.0); RBC MORPH NORMAL; TOTAL PROTEIN 7.1 GM/DL (6.4-8.2)
== END 2020-08-31 | disposition home or self-care (01) ==
LOC: ONC 13:31
PROVIDERS: ATTEND Internal Medicine Hematology & Oncology
DX: D72.10 Eosinophilia, unspecified (principal)
CPT/HCPCS: 80053; 83615; 85007; 85027; G0463; 99214

== ENCOUNTER 2020-09-01 13:30 | Outpatient (RCR) | payer MEDICAID ==
[~2020-09-01 13:30] MED LIST changes: -SULF1TAB35 PO; +SULF1TAB38 PO
[2020-09-01 13:42] LABS: BASOPHILS # (AUTO) 0.1 10^3/uL (0.0-0.1); BASOPHILS % (AUTO) 1 % (0-10); EOSINOPHILS # (AUTO) 0.4 10^3/uL (0.0-0.3); EOSINOPHILS % (AUTO) 7 % (0-10); HEMATOCRIT 38 % (35-52); HEMOGLOBIN 12.5 g/dL (11.5-16.0); LYMPHOCYTES # (AUTO) 1.8 10^3/uL (1.0-4.0); LYMPHOCYTES % (AUTO) 29 % (12-44); MEAN CORPUSCULAR HEMOGLOBIN 32 pg (25-34); MEAN CORPUSCULAR HGB CONC 33 g/dL (32-36); MEAN CORPUSCULAR VOLUME 97 fL (80-99); MEAN PLATELET VOLUME 11.8 fL (9.0-12.2); MONOCYTES # (AUTO) 0.5 10^3/uL (0.0-1.0); MONOCYTES % (AUTO) 8 % (0-12); NEUTROPHILS # (AUTO) 3.3 10^3/uL (1.8-7.8); NEUTROPHILS % (AUTO) 55 % (42-75); PLATELET COUNT 218 10^3/uL (130-400); WHITE BLOOD COUNT 6.1 10^3/uL (4.3-11.0)
[2020-09-01 14:13] LABS: ALANINE AMINOTRANSFERASE 19 U/L (0-55); ALBUMIN 3.9 GM/DL (3.2-4.5); ALKALINE PHOSPHATASE 66 U/L (40-136); BILIRUBIN,TOTAL 0.3 MG/DL (0.1-1.0); BUN/CREATININE RATIO 11; CALCIUM 8.5 MG/DL (8.5-10.1); CARBON DIOXIDE 27 MMOL/L (21-32); CHLORIDE 108 MMOL/L (98-107); CREATININE SERUM 0.89 MG/DL (0.60-1.30); GFR ESTIMATED > 60; GLUCOSE 110 MG/DL (70-105); POTASSIUM 3.8 MMOL/L (3.6-5.0); SODIUM 138 MMOL/L (135-145); TOTAL PROTEIN 6.6 GM/DL (6.4-8.2)
== END 2020-11-30 | disposition home or self-care (01) ==
LOC: ONC 13:30
PROVIDERS: ATTEND Internal Medicine Hematology & Oncology
DX: D72.10 Eosinophilia, unspecified (principal); F41.9 Anxiety disorder, unspecified
CPT/HCPCS: 80053; 83615; 85025; G0463; 99213

== ENCOUNTER 2021-06-20 05:34 | Outpatient (CLI) | payer MEDICAID ==
[~2021-06-20] VITALS: Ht 170.2 cm; Wt 69.9 kg
[2021-06-20] MEDS ORDERED: [UNRECOGNIZED DRUG - OTHER] PO (12:59)
[2021-06-20] MEDS ORDERED: SOLI10TA7 PO (12:59)
== END 2021-06-20 13:16 | disposition home or self-care (01) ==
LOC: PREOP 05:34
PROVIDERS: ATTEND Internal Medicine
DX: Z01.818 Encounter for other preprocedural examination (principal)

== ENCOUNTER 2021-06-23 08:16 | Day surgery (SDC) | payer MEDICAID ==
--- NOTE | 2021-06-20 07:15 | HISTORY AND PHYSICAL ---
DATE OF SERVICE: COLONOSCOPY HISTORY AND PHYSICAL HISTORY OF PRESENT ILLNESS: The patient is being set up for her first screening colonoscopy at the age of 51. She is deemed to be of average risk as she is not aware of any family history for colon cancer. She denies abdominal pain, change in bowel habit, bright red blood per rectum or melena. PAST MEDICAL HISTORY: Significant for anxiety and depression. She also reports a history of PTSD. PAST SURGICAL HISTORY: She had right rotator cuff repair in 2019. No difficulty with anesthesia. She has had ulnar nerve repair, ulnar neuropathy requiring repair in 2018, and C-sections in 2004 and 1987. PHYSICAL EXAMINATION: GENERAL: Reveals a white female, appeared to be in no acute distress. VITAL SIGNS: Blood pressure 112/72, weight 156 pounds. HEENT: Unremarkable. Sclerae nonicteric. CHEST: Clear to auscultation. CARDIOVASCULAR: Reveals regular rate and rhythm without murmur, S3 or S4. ABDOMEN: Soft, supple without mass, organomegaly or tenderness. EXTREMITIES: Reveal no cyanosis, clubbing or edema. ASSESSMENT AND PLAN: The patient is being set up for screening colonoscopy. Rationale for screening colonoscopy was discussed. Questions were answered. Prep instructions were given and questions were answered about this as well. The patient is being set up for this coming 06/22/2021. Job ID: [id number] DocumentID: [id number] Dictated Date: 06/19/2021 11:47:19 Grades 1 6 Tutor Date: 06/19/2021 12:27:00 Dictated By: CASIMIRO MARMOLEJO MD
[~2021-06-23] VITALS: Ht 170.2 cm; Wt 69.9 kg
[~2021-06-23 08:16] MED LIST changes: +SOLI10TA7 PO; +[UNRECOGNIZED DRUG - OTHER] PO
[2021-06-23] MEDS ORDERED: LACTATED RINGERS 1,000 ML IV STA (08:23)
[2021-06-23] MEDS ORDERED: LIDOCAINE JELLY 2% 6 ML SYRINGE MM PRN (08:30)
[2021-06-23 08:45] VITALS: BP 112/62
--- NOTE | 2021-06-23 08:55 | Pre-Op Note & Conscious Sedat ---
Pre-Operative Progress Note H&P Reviewed The H&P was reviewed, patient examined and no changes noted. Date H&P Reviewed: Jun 23, 2021 Time H&P Reviewed: 08:54 Conscious Sedation Pre-Proced ASA Score 1 For ASA 3 and 4: Consider anesthesia and medical clearance. Also, for patients with a history of failed moderate sedation consider anesthesia. Airway Lungs Heart ASA score ASA 1: a normal healthy patient ASA 2: a patient with a mild systemic disease (mid diabetes, controlled hypertension, obesity ASA 3: a patient with a severe systemic disease that limits activity (angina, COPD, prior Myocardial infarction) ASA 4: a patient with an incapacitating disease that is a constant threat to life (CHF, renal failure) ASA 5: a moribund patient not expected to survive 24 hrs. (ruptured aneurysm) ASA 6: a declared brain- patient whose organs are being harvested. For emergent operations, add the letter E after the classification Mallampati Classification Grade 2 Sedation Plan Analgesia, Amnesia, Plan communicated to team members, Discussed options with patient/fam, Discussed risks with patient/fam The patient is an appropriate candidate to undergo the planned procedure, sedation, and anesthesia. The patient immediately re-assessed prior to indication. CASIMIRO MARMOLEJO MD Jun 23, 2021 08:55
[2021-06-23] MEDS ORDERED: PROPOFOL INJECTION 50 ML IV ONE (09:34)
[2021-06-23] MEDS ORDERED: MIDAZOLAM 2 MG/2 ML (VERSED) VIAL ONE (09:34)
[2021-06-23 10:30] VITALS: BP 92/53
[2021-06-23 10:35] VITALS: BP 101/60
[2021-06-23 10:40] VITALS: BP 114/58
[2021-06-23 11:05] VITALS: BP 118/60
--- NOTE | 2021-06-23 11:19 | Anesthesia-General Post-Op ---
MAC Patient Condition Mental Status/LOC: Same as Preop Cardiovascular: Satisfactory Nausea/Vomiting: Absent Respiratory: Satisfactory Pain: Controlled Complications: Absent Post Op Complications Complications None Follow Up Care/Instructions Patient Instructions None needed. Anesthesiology Discharge Order Discharge Order Patient was doing well this morning after the procedure, no complaints, stable vital signs, no apparent adverse anesthesia problems. SHERIN BERNAL DO Jun 23, 2021 11:19
--- NOTE | 2021-06-23 16:23 | OPERATIVE REPORT ---
DATE OF SERVICE: COLONOSCOPY SUMMARY INDICATION FOR THE PROCEDURE: Screening colonoscopy. The patient was placed in the left lateral decubitus position. Prior to undergoing colonoscopy, digital rectal evaluation was performed. Anal sphincter tone was normal and the perianal reflexes intact. No abnormalities, no additional inspection of the anal canal or distal rectal vault. The colonoscope was then inserted into the rectum and under direct visualization advanced to the cecum. The cecum was identified by identification of the cecal strap. Photographic documentation was obtained. Quality of the prep was suboptimal with lot of liquid to semi-solid stool present. FINDINGS: There was no evidence for internal or external hemorrhoids and the rectum was unremarkable. Several small sigmoid diverticulum were present without evidence for diverticulitis. The descending colon, splenic flexure, transverse colon, and hepatic flexure were unremarkable. There were moderate number of small to medium size ascending diverticulum noted without evidence for diverticulitis. No other ascending colonic abnormalities or cecal abnormalities were noted. ASSESSMENT: Diverticular disease, moderate, predominantly involving the ascending colon to a much lesser extent the sigmoid colon without evidence for diverticulitis was noted. No neoplasia was identified; however, under suboptimal prep conditions as noted above. We would advocate repeat screening colonoscopy in five years. Job ID: [id number] DocumentID: [id number] Dictated Date: 06/23/2021 10:36:14 Education Consultant Date: 06/23/2021 16:22:37 Dictated By: CASIMIRO MARMOLEJO MD [facility]
== END 2021-06-23 11:27 | disposition home or self-care (01) ==
LOC: ENDO 08:16
PROVIDERS: ATTEND Internal Medicine
DX: Z12.11 Encounter for screening for malignant neoplasm of colon (principal); K57.30 Diverticulosis of large intestine without perforation or abscess without bleeding
CPT/HCPCS: 84703

== ENCOUNTER → 2022-06-25 | Outpatient (CLI) | payer MEDICAID ==
--- NOTE | 2022-06-25 09:08 | Diagnostic Imaging Report ---
INDICATION: Routine screening. COMPARISON: 03/16/2014 and 08/04/2012. TECHNIQUE: 2D and 3D bilateral screening mammography was performed with CAD. FINDINGS: Both breasts are heterogeneously dense, limiting the sensitivity of mammography. No mass or malignant-appearing microcalcifications are seen. The axillae are unremarkable. IMPRESSION: No mammographic features suspicious for malignancy are identified. ACR BI-RADS Category 1: Negative. Result letter will be mailed to the patient. Note: At least 10% of breast cancer is not imaged by mammography. Dictated by: Dictated on workstation # [id number]
== END ==
LOC: RAD 08:05
PROVIDERS: ATTEND Nurse Practitioner Family
DX: Z12.31 Encounter for screening mammogram for malignant neoplasm of breast (principal)
CPT/HCPCS: 77063; 77067

== ENCOUNTER → 2022-07-19 | Outpatient (CLI) | payer MEDICAID ==
[2022-07-19 09:50] LABS: HEMATOCRIT 39 % (35-52); HEMOGLOBIN 13.1 g/dL (11.5-16.0); MEAN CORPUSCULAR HEMOGLOBIN 32 pg (25-34); MEAN CORPUSCULAR HGB CONC 34 g/dL (32-36); MEAN CORPUSCULAR VOLUME 96 fL (80-99); MEAN PLATELET VOLUME 11.7 fL (9.0-12.2); PLATELET COUNT 215 10^3/uL (130-400); WHITE BLOOD COUNT 5.5 10^3/uL (4.3-11.0)
[2022-07-19 10:11] LABS: ALBUMIN 4.1 GM/DL (3.2-4.5); BILIRUBIN,TOTAL 0.4 MG/DL (0.1-1.0); CALCIUM 9.1 MG/DL (8.5-10.1); CREATININE SERUM 0.96 MG/DL (0.60-1.30); POTASSIUM 3.7 MMOL/L (3.6-5.0); TOTAL PROTEIN 6.8 GM/DL (6.4-8.2)
== END ==
LOC: LAB 09:25
PROVIDERS: ATTEND Plastic Surgery
DX: D64.9 Anemia, unspecified (principal); M47.816 Spondylosis without myelopathy or radiculopathy, lumbar region; C79.51 Secondary malignant neoplasm of bone
CPT/HCPCS: 36415; 80053; 85027; 93005

== ENCOUNTER → 2023-01-08 | Outpatient (CLI) | payer MEDICAID, OTHER | LOC: LAB 10:20 | PROVIDERS: ATTEND Nurse Practitioner Family | DX: N91.2 Amenorrhea, unspecified (principal) | CPT/HCPCS: 36415; 83001; 84146; 84443 ==